=== PATIENT | female | born 1975 | race Caucasian/White ===

== ENCOUNTER → 2019-06-16 12:22 | Outpatient (CLI) | payer OTHER, SELFPAY ==
--- NOTE | 2019-06-16 12:24 | DI.RAD.S_ITS ---
PROCEDURE: XR THORACIC SPINE 3V INDICATIONS: r/o bony abnormality TECHNIQUE: 3 views of the thoracic spine were acquired. COMPARISON: None. FINDINGS: Bones: No fractures or dislocations. No suspicious bony lesions. 12 pairs of ribs are noted, and appear intact where visualized. Soft tissues: No paravertebral stripe thickening. Note is made of prior sternotomy wires, and centrally positioned valve replacement. IMPRESSION: Prior cardiac surgery, pacemaking device and dual chamber leads normal, no osseous abnormality along the thoracic spine is found. Dictated by: Anton Hodgson M.D. on 06/16/2019 at 13:01 Approved by: Anton Hodgson M.D. on 06/16/2019 at 13:02
== END ==
PROVIDERS: PCP Nurse Practitioner Family; Visit Provider Physician Assistant
DX: M54.9 Dorsalgia, unspecified (principal); Z95.0 Presence of cardiac pacemaker
CPT/HCPCS: 72072